=== PATIENT | female | born 1975 | race Two or more races ===

== ENCOUNTER 2017-05-10 07:55 | Day surgery (SDC) | payer OTHER ==
[~2017-05-10 07:55] MED LIST: HYDROmorphone 2 MG/ML VIAL IV PRN; IV RINGERS,LACTATED 1000ML 1,000 ML IV SCH; LIDOCAINE 1% 1 ML SYRINGE. ID PRN; MORPHINE SULFATE 2 MG/ML DISP.SYRIN. IV PRN; ONDANSETRON PF 4 MG/2 ML VIAL. IV PRN; PROCHLORPERAZINE 10 MG/2 ML VIAL. IV PRN; fentaNYL PF VIAL 100 MCG/2 ML VIAL IV PRN
[2017-05-10] MEDS ORDERED: BUPIVACAINE-EPI 0.5%-1:200000 50 ML VIAL. ONE (08:03)
[2017-05-10 08:50] LABS: NEG OBC UR NEG; POS OBC UR POS
[2017-05-10] MEDS ORDERED: PROPOFOL 20 ML IV ONE (09:54)
[2017-05-10] MEDS ORDERED: fentaNYL PF VIAL 100 MCG/2 ML VIAL ONE ×2 (09:54→12:21)
[2017-05-10] MEDS ORDERED: MIDAZOLAM HCL/PF 2 MG/2 ML VIAL. ONE (09:54)
[2017-05-10] MEDS ORDERED: DEXAMETHASONE SOD PHOS 20 MG/5 ML VIAL. ONE (09:54)
[2017-05-10] MEDS ORDERED: LIDOCAINE 2% PF Vial for OR 5 ML VIAL. ONE (09:54)
[2017-05-10] MEDS ORDERED: ONDANSETRON PF 4 MG/2 ML VIAL. ONE (09:54)
--- NOTE | 2017-05-10 10:05 | RAD ---
Indication indeterminate calcifications right breast. Wire localization of calcifications in the right breast, in anticipation of an open biopsy, was discussed with the patient. The risks of infection and bleeding were outlined. The possibility of damage to the implant was also discussed. The patient understood the risks associated with the procedure and wished proceed. The procedure was performed in a dedicated mammographic suite. A lateral to medial approach was selected. Preliminary images were obtained and the suspect calcifications were identified. The skin was prepped and draped in the routine fashion. Local anesthesia was accomplished with 1% buffered lidocaine. A 5 cm Kopan's wire was utilized. At the completion of the procedure the suspect calcifications were immediately adjacent to the midportion of the reinforced stem of the wire. The targeted calcifications are approximately 3 cm deep to the wire at the entry point in the skin. The patient had a minor vasovagal episode during the wire localization from which she recovered unremarkable under conservative treatment. IMPRESSION: Successful wire localization of target microcalcifications in the right breast
[2017-05-10] MEDS ORDERED: ePHEDrine PF IN SALINE 50 MG/5 ML DISP.SYRIN IV ONE (11:31)
--- NOTE | 2017-05-10 12:13 | RAD ---
Indication specimen radiograph. A specimen radiograph examination was performed. The targeted microcalcifications are retrieved in the specimen. IMPRESSION: Successful surgical retrieval of targeted microcalcifications
[2017-05-10] MEDS: fentaNYL PF VIAL 100 MCG/2 ML VIAL IV PRN ×2 (12:20→12:41)
--- NOTE | 2017-05-10 12:47 | PDOC1 ---
History and Physical Date of Admission Date of Admission DATE: 05/10/17 TIME: 11:00 Identification/Chief Complaint Chief Complaint Calcifications right breast Problems: Source Source: Caregiver, Patient History of Present Illness History of Present Illness Marcella is a 41 yo female with bilateral breast implants. Recent mammograms showed some calcifications in the upper outer quadrant of her right breast. She is brought for a needle loc biopsy Past Medical History Cardiovascular: No pertinent hx Pulmonary: No pertinent hx GI: No pertinent hx Past Surgical History Past Surgical History: Other (breast augmentation) Family History Family History: No Significant Social History Smoke: No ALCOHOL: none Current Medications Current Medications Current Medications Cefazolin Sodium/ Dextrose 50 ml @ 100 mls/hr 1X PREOP PRN IV PRIOR TO PROCEDURE Last administered on 05/10/17 11:25; Start 05/10/17 at 06:00; Stop at 18:00 Ondansetron HCl (Zofran) 4 mg PRN Q6HRS PRN IV NAUSEA/VOMITING; Start 05/10/17 at 07:00; Stop 05/11/17 at 06:59 Fentanyl Citrate (Fentanyl 2ml Vial) 25 mcg PRN Q5MIN PRN IV MILD PAIN; Start 05/10/17 at 07:00; Stop 05/11/17 at 06:59 Fentanyl Citrate (Fentanyl 2ml Vial) 50 mcg PRN Q5MIN PRN IV MODERATE PAIN Last administered on 05/10/17 12:41; Start 05/10/17 at 07:00; Stop 05/11/17 at 06:59 Morphine Sulfate 1 mg PRN Q10MIN PRN IV SEVERE PAIN; Start 05/10/17 at 07:00; Stop 05/11/17 at 06:59 Ringer's Solution 1,000 ml @ 30 mls/hr Q24H IV Last administered on 05/10/17 08:30; Start 05/10/17 at 07:00; Stop 05/10/17 at 18:59 Lidocaine HCl 2 ml PRN 1X PRN ID PRIOR TO IV START; Start 05/10/17 at 07:00; Stop 05/11/17 at 06:59 Hydromorphone HCl (Dilaudid) 0.5 mg PRN Q10MIN PRN IV SEV PAIN, Second choice; Start 05/10/17 at 07:00; Stop 05/11/17 at 06:59 Prochlorperazine Edisylate (Compazine) 5 mg PACU PRN PRN IV NAUSEA, MRX1; Start 05/10/17 at 07:00; Stop 05/11/17 at 06:59 Bupivacaine HCl/ Epinephrine Bitart (Marcaine-Epi 0.5%-1:[id number]) 50 ml STK-MED ONCE .ROUTE Last administered on 05/10/17t 11:40; Start 05/10/17 at 08:03; Stop 05/10/17 at 08:04; Status DC Cefazolin Sodium/ Dextrose 50 ml @ 100 mls/hr 1X PREOP PRN IV Pre Op dose; Start 05/11/17 at 06:00; Stop 05/11/17 at 18:00 Dexamethasone Sodium Phosphate (Decadron) 20 mg STK-MED ONCE .ROUTE ; Start at 09:54; Stop 05/10/17 at 09:55; Status DC Ondansetron HCl (Zofran) 4 mg STK-MED ONCE .ROUTE ; Start 05/10/17 at 09:54; Stop 05/10/17 at 09:55; Status DC Propofol 20 ml @ As Directed STK-MED ONCE IV ; Start 05/10/17 at 09:54; Stop at 09:55; Status DC Lidocaine HCl (Lidocaine Pf 2% Vial) 5 ml STK-MED ONCE .ROUTE ; Start 05/10/17 at 09:54; Stop 05/10/17 at 09:55; Status DC Midazolam HCl (Versed) 2 mg STK-MED ONCE .ROUTE ; Start 05/10/17 at 09:54; Stop 05/10/17 at 09:55; Status DC Fentanyl Citrate (Fentanyl 2ml Vial) 100 mcg STK-MED ONCE .ROUTE ; Start at 09:54; Stop 05/10/17 at 09:55; Status DC Ephedrine Sulfate 50 mg STK-MED ONCE IV ; Start 05/10/17 at 11:31; Stop at 11:32; Status DC Fentanyl Citrate (Fentanyl 2ml Vial) 100 mcg STK-MED ONCE .ROUTE ; Start at 12:21; Stop 05/10/17 at 12:22; Status DC Active Scripts Active Reported No Known Medications Prior To Admisstion (Info) Each 1 Each Allergies Allergies: Coded Allergies: No Known Drug Allergies (Unverified , 05/10/17) ROS Review of System negative with exception of present complaints Physical Exam General: Alert, Oriented X3, No acute distress HEENT: Atraumatic Lungs: Clear to auscultation Heart: RRR Breasts: No suspicious masses, Salvador implants Skin: No rashes Neuro: Normal speech Vitals Vitals Vital Signs Date Time Temp Pulse Resp B/P (MAP) Pulse Ox O2 Delivery O2 Flow Rate FiO2 05/10/17 12:41 13 98 Room Air 05/10/17 12:28 97.1 84 123/68 10 97.1 Labs Labs Laboratory Tests Test 05/10/17 08:00 Urine Test Negative (NEG) Laboratory Tests Test 05/10/17 08:00 Urine Test Negative (NEG) Images Images localization films reviewed VTE Prophylaxis Ordered VTE Prophylaxis Devices: Yes VTE Pharmacological Prophylaxi: No Assessment/Plan Assessment/Plan calcifications right breast needle loc biopsy ROLLY REED MD May 10, 2017 12:47
--- NOTE | 2017-05-10 12:49 | PDOC ---
BRIEF OPERATIVE NOTE Date: May 10, 2017 Pre-Op Diagnosis calcifications right breast Post-Op Diagnosis same Procedure Performed needle loc breast biopsy,. right Surgeon Frank Guidance Counselor Mary BERNAL Anesthesia Type: General Blood Loss 5cc IV Fluid 600cc Specimens Obtained right breast biopsy Findings firm tissue in the area of concern Complications none OPerative Note Wk # [id number] ROLLY REED MD May 10, 2017 12:49
--- NOTE | 2017-05-10 12:50 | DISCH ---
DISCHARGE INSTRUCTIONS Condition on Discharge Condition on Discharge: Stable Activity After Discharge Activity Instructions for Disc: Activity as tolerated, Avoid exertion Driving Instructions after Dis: Do not drive today Diet after Discharge Diet after Discharge: Regular Wound Incision Care Other wound/incision instructi: february shower Saturday Follow-Up Follow up with: Frank in [place] office 05/16 ROLLY REED MD May 10, 2017 12:50
--- NOTE | 2017-05-10 12:55 | OP ---
DATE OF SURGERY: 05/10/2017 PREOPERATIVE DIAGNOSIS: Mammographic change right breast with calcification ____ with an implant. POSTOPERATIVE DIAGNOSIS: Mammographic change right breast with calcification ____ with an implant. PROCEDURE: Right middle lobe breast biopsy. SURGEON: Rolly Reed MD ANESTHESIA: General LMA. ESTIMATED BLOOD LOSS: 5 mL. INTRAVENOUS FLUIDS: 600 mL. INDICATIONS: The patient is a 41-year-old with bilateral breast implants, who on recent mammograms and calcifications on the upper outer aspect of her right breast. She is brought for excision. OPERATIVE REPORT: The patient went to the radiology suite where she underwent localization of calcification in the upper quadrant of the right breast. She was then brought to the Operating Suite, given general LMA and the right breast was prepped and draped in usual sterile fashion. A curvilinear incision in the upper quadrant was infiltrated with 0.5% Marcaine with epinephrine, incised and dissection carried down to the localization wire. Care was taken to avoid the implant. The tissue posterior to the shoulder of the wire which represent to the area of concern was sharply excised. Specimen sent to Radiology where specimen radiograph confirmed the presence of the calcifications. Hemostasis in the wound with cautery and a single 3-0 Vicryl stitch. When hemostasis was present and a correct sponge count was obtained, the breast tissue was approximated with 3-0 Vicryl and the skin was closed with subcuticular 4-0 Monocryl, Steri-Strips and sterile dressing. The patient awakened from her anesthetic and taken to the recovery room in satisfactory condition. ROLLY REED MD DR: ADRIAN/nts JOB#: [id number] / [id number]
[2017-05-10] MEDS ORDERED: HYDROcodone/APAP 5/325MG 1 TAB TABLET PO ONE (13:00)
[2017-05-10 13:30] VITALS: BP 122/72
[2017-05-10] MEDS ORDERED: SEVOFLURANE 31 TO 60 MINUTES. IH ONE (13:32)
--- NOTE | 2017-05-14 08:36 | PATHOLOGY ---
PATHOLOGY REPORT * * * * * * * * FINAL DIAGNOSIS: Breast tissue, wire localized right breast biopsy: - Invasive ductal carcinoma, histologic grade 1, forming a tumor mass measuring 1.4 cm in greatest dimension. - INVASIVE carcinoma is focally present at the inked histologic margin. - Ductal carcinoma in situ, low-grade, cribriform type, with associated calcifications. - Proliferative fibrocystic changes, with focal moderate ductal epithelial hyperplasia. - Sclerosing adenosis and radial sclerosing lesions with focal moderate ductal epithelial hyperplasia. (JPM:kervin; 05/13/2017) CLINICAL Clinical History: Other: Calcifications. Radiologic Finding: Calcifications SPECIMEN Procedure: Excision with image-guided localization Lymph Node Sampling: No lymph nodes present Specimen Laterality: Right TUMOR Primary Tumor Site: Invasive Carcinoma: Not specified Presence of Invasive Carcinoma: Histologic Type: Invasive mammary carcinoma of no special type (ductal, not otherwise specified) Histologic Grade (Adv Histologic Score): Glandular (Acinar) / Tubular Differentiation: Score 1 (> 75% of tumor area forming glandular / tubular structures) Nuclear Pleomorphism: Score 2 (Cells larger than normal with open vesicular nuclei, visible nucleoli, and moderate variability in both size and shape) Mitotic Rate: Score 1 (<=3 mitoses per mm2) Overall Grade: Grade 1 (scores of 3, 4 or 5) Ductal Carcinoma In Situ (DCIS): DCIS is present Negative for extensive intraductal component (EIC) Architectural Patterns: Cribriform Nuclear Grade (see Table 2 in CAP Protocol): Grade I (low) Lobular Carcinoma In Situ (LCIS): Not identified Tumor Size: Size of Largest Invasive Carcinoma: Greatest dimension of largest focus of invasion > 1 mm Greatest Dimension (mm): 14 Accessory Tumor Findings Lymph-Vascular Invasion: Not identified Dermal Lymph-Vascular Invasion: No skin present Microcalcifications: Present in DCIS Treatment Effect: Response to Presurgical (Neoadjuvant) Therapy: No known presurgical therapy MARGINS Invasive Carcinoma: Margin(s) positive for invasive carcinoma Specify Margin(s): Cannot be determined: Specimen not oriented. Ductal Carcinoma In Situ (DCIS): Margins uninvolved by DCIS (DCIS present in specimen) Distance of DCIS from Closest Margin (mm): Distance (specify in mm): 1 Closest Uninvolved Margin(s): Cannot be determined: Specimen not oriented. STAGE (PTNM) Primary Tumor (Invasive Carcinoma) (pT): pT1c: Tumor > 10 mm but <= 20 mm in greatest dimension Category (pN): pNX: Regional lymph nodes cannot be assessed (e.g., previously removed, or not removed for pathologic study) ADDITIONAL FINDINGS Additional Pathologic Findings: See diagnoses. COMMENT: Sections of the wire localized right breast lesion reveal an invasive ductal carcinoma with cribriform features. The tumor shows fairly good tubule formation, mild to moderate nuclear pleomorphism, and only mild mitotic activity. There is associated low-grade ductal carcinoma in situ of cribriform type with associated calcifications. The invasive carcinoma measures up to 1.4 cm in greatest dimension and is focally present at the inked margin. There is no lymphovascular tumor invasion. The tumor arises within a setting of proliferative fibrocystic changes, sclerosing adenosis, and radial sclerosing lesions. Breast prognostic studies will be obtained, the results of which will be reported separately. The case is also examined with Dr. Barksdale, who concurs with the diagnosis. (JPM:kervin; 05/13/2017) REPORT ELECTRONICALLY SIGNED BY: Robert Cheng M.D. DATE/TIME: 05/14/2017 08:36 * * * * * * * * GROSS PATHOLOGY: The specimen is received fresh, in a TranSpec specimen container, designated, "Marcella Velasco, right breast tissue" and consists of an irregular , rubbery firm segment of yellow walton, lobulated, fatty breast tissue measuring 4.5 x 3.2 x 0.7 cm in maximum dimensions. There is a metallic wire protruding from one end of the specimen. There is also a suture present; however, the specimen is not oriented. The margins are inked with black ink and the specimen is serially sectioned. Sectioning reveals a predominantly fatty cut surface with a few fibrous bands of walton white breast tissue. In the area of localization, there is an eccentrically located area of walton white nodularity, measuring up to 0.9 cm in maximum dimensions. This focally extends to one margin grossly. The specimen is submitted entirely in cassettes A1-A6, with the localized area in cassettes A4 and A5. The cold ischemic time is 9 minutes and total formalin fixation time is 9 hours and 50 minutes. (JPM; 05/10/17) INITIAL CPT CODE(S): A; 63711, 70842(4) Professional services [place] [address] Technical services performed by [facility] at [address] [place] [address], [address] [address]. SPECIMEN(S) RECEIVED: A.Right breast biopsy CLINICAL HISTORY: Microcalcifications right breast PATIENT: MARCELLA VELASCO /AGE: 2 1975 (Age: 41) PATIENT #: [id number] ALT CASE #: SPECIMEN COLLECTION DATE: 05/10/2017 SPECIMEN RECEIVED DATE: 05/10/2017 [facility] - [address] [place] [address] - PHONE: [phone] * * * END OF REPORT * * *
== END 2017-05-10 13:52 | disposition home or self-care (01) ==
LOC: MAMMO 07:55
PROVIDERS: ATTEND Surgery
DX: R92.1 Mammographic calcification found on diagnostic imaging of breast (principal); Z72.89 Other problems related to lifestyle
CPT/HCPCS: 19100; 19281; 76098; 81025; J0690; J1100; J2001; J2250; J2405; J2704; J3010; C1769; J7120

== ENCOUNTER 2017-05-27 07:42 | Inpatient (IN) | payer OTHER ==
[2017-05-27] VITALS (9 sets, daily range): BP systolic 99–135; BP diastolic 57–76
[~2017-05-27] VITALS: Ht 160 cm; Wt 61.7 kg
[~2017-05-27 07:42] MED LIST changes: +LIDOCAINE 1% / SOD BICARB 8.4% 20 ML VIAL. IJ ONE
[2017-05-27 08:28] LABS: NEG OBC UR NEG; POS OBC UR POS
[2017-05-27] MEDS ORDERED: LIDOCAINE 2% TOPICAL JELLY 5GM TUBE. TP ONE (08:37)
[2017-05-27] MEDS ORDERED: PROPOFOL 20 ML IV ONE (08:37)
[2017-05-27] MEDS ORDERED: LIDOCAINE 2% PF Vial for OR 5 ML VIAL. ONE (08:37)
[2017-05-27] MEDS ORDERED: MIDAZOLAM HCL/PF 2 MG/2 ML VIAL. ONE (08:42)
[2017-05-27] MEDS ORDERED: fentaNYL PF VIAL 100 MCG/2 ML VIAL ONE ×4 (08:42→13:40)
[2017-05-27] MEDS ORDERED: ISOSULFAN BLUE 50 MG/5 ML VIAL. SQ ONE (09:13)
[2017-05-27] MEDS ORDERED: BUPIVAC MPF-EPI 0.5%-1:200000 30 ML VIAL. ONE (09:13)
[2017-05-27] MEDS ORDERED: EPINEPHrine 1 MG/ML VIAL ONE (11:03)
--- NOTE | 2017-05-27 11:23 | RAD ---
Indication right breast malignancy. Anticipated sentinel node biopsy. The area around the right nipple was prepped and cleansed in the routine fashion. 0.8 mCi of filtered technetium sulfur colloid was injected about the right nipple at the 12, 3, 6 and 9:00 positions. No images were obtained. IMPRESSION: Lymphoscintigraphy in anticipation of sentinel node biopsy
[2017-05-27] MEDS ORDERED: PHENYLEPHRINE 10 MG/ML VIAL. ONE (11:54)
[2017-05-27] MEDS ORDERED: 0.9 % SODIUM CHLORIDE 50 ML VIAL. IJ ONE (11:54)
[2017-05-27] MEDS ORDERED: SEVOFLURANE 61 TO 120 MINUTES. IH ONE (12:33)
[2017-05-27] MEDS ORDERED: HYDROcodone/APAP 5/325MG 1 TAB TABLET PO PRN (13:00)
[2017-05-27] MEDS ORDERED: ONDANSETRON PF 4 MG/2 ML VIAL. IV PRN (13:00)
[2017-05-27] MEDS ORDERED: diphenhydrAMINE 50 MG/ML VIAL IV PRN (13:00)
[2017-05-27] MEDS ORDERED: diphenhydrAMINE HCL 25 MG CAPSULE PO PRN (13:00)
[2017-05-27] MEDS ORDERED: 0.9 % SODIUM CHLORIDE 10 ML DISP.SYRIN. IV PRN (13:00)
[2017-05-27] MEDS ORDERED: HYDROmorphone 2 MG/ML VIAL IV PRN (13:00)
[2017-05-27] MEDS: fentaNYL PF VIAL 100 MCG/2 ML VIAL IV PRN ×4 (13:17→13:56)
[2017-05-27] MEDS: POTASSIUM CL 20MEQ-0.45% NACL 1,000 ML IV SCH (16:06)
[2017-05-27] MEDS: HYDROcodone/APAP 5/325MG 1 TAB TABLET PO PRN ×2 (16:07→23:07)
--- NOTE | 2017-05-27 16:58 | PDOC ---
BRIEF OPERATIVE NOTE Date: May 27, 2017 Pre-Op Diagnosis Invasive carcinoma right breast Post-Op Diagnosis Same Procedure Performed Right sentinel lymph node biopsy Right segmental mastectomy Surgeon Frank Anesthesia Type: General Blood Loss 20 mL IV Fluid 1500 mL Specimens Obtained Right sentinel lymph node 2 Right axillary tissue Right breast segmental mastectomy Findings Negative sentinel nodes 2 Complications None OPerative Note Wk # [id number] ROLLY REED MD May 27, 2017 16:58
--- NOTE | 2017-05-27 20:50 | OP ---
DATE OF SURGERY: 05/27/2017 PREOPERATIVE DIAGNOSIS: Invasive carcinoma, right breast. POSTOPERATIVE DIAGNOSIS: Invasive carcinoma, right breast. PROCEDURE: 1. Right sentinel lymph node biopsy. 2. Right segmental mastectomy. SURGEON: Rolly Reed MD ANESTHESIA: General LMA. ESTIMATED BLOOD LOSS: 20. INTRAVENOUS FLUIDS: 1500. INDICATIONS: The patient is a 41-year-old with a previous biopsy showing invasive ductal carcinoma. She is brought for segmental mastectomy. OPERATIVE FINDINGS: The sentinel nodes were harvested were blue stained and "hot" Both were negative for evidence of metastatic disease. DESCRIPTION OF PROCEDURE: The patient brought to the operating suite, given a general anesthetic and the right breast, arm and chest were prepped and draped in usual sterile fashion. She had gone to the nuclear medicine department preoperatively for injection of the radionuclei. 5 mL of Lymphazurin was injected intradermally, circumareolarly in the quadrant associated with the patient's cancer. General breast massage was carried out for approximately 5 minutes. Using the C-Trak probe as a guide an incision was made in the axilla over an area of activity suggesting sentinel lymph node location. 0.5% Marcaine with epinephrine was infiltrated in the skin. Incision was made, dissection carried down into the axilla where two "hot" and blue stain nodes were harvested and sent to Pathology. While awaiting those results some other tissue was harvested and this markedly decreased any activity within the axilla. Intraoperative report of the nodes was negative for evidence of metastatic change. As such, the skin around the previous biopsy site was infiltrated with local anesthetic, sharply incised and the skin and underlying area removed en bloc. Care was taken to stay above the pectoralis musculature and avoid damage to the patient's known implants. Good hemostasis was present. A 19-Macedonian drain was threaded from the axillary incision into the breast incision and brought out inferolateral stab wounds, sewn to the skin with a silk stitch. When a correct sponge count had been obtained and hemostasis was present, the incisions were closed with subcuticular 4-0 Monocryl. Steri-Strips and sterile dressings applied. The patient awakened from her anesthetic and taken to the recovery room in satisfactory condition. ROLLY REED MD DR: ADRIAN/michelle JOB#: [id number] / [id number]
[2017-05-27] MEDS: DOCUSATE SODIUM 100 MG CAPSULE. PO SCH (21:44)
[2017-05-28 03:00] VITALS: BP 93/48
[2017-05-28] MEDS: POTASSIUM CL 20MEQ-0.45% NACL 1,000 ML IV SCH ×3 (05:20→13:24)
[2017-05-28 07:00] VITALS: BP 124/76
[2017-05-28] MEDS: ENOXAPARIN 40 MG/0.4 ML SYRINGE. SQ SCH (09:10)
[2017-05-28] MEDS: HYDROcodone/APAP 5/325MG 1 TAB TABLET PO PRN ×3 (09:11→19:29)
[2017-05-28] MEDS: DOCUSATE SODIUM 100 MG CAPSULE. PO SCH ×2 (09:11→19:28)
[2017-05-28 11:00] VITALS: BP 92/68
[2017-05-28 15:00] VITALS: BP 110/72
--- NOTE | 2017-05-28 18:42 | PDOC ---
SURGICAL PROGRESS NOTE Subjective seen earlier today daughter at bedside to translate had some dizziness when up earlier better now Vital Signs Vital Signs Date Time Temp Pulse Resp B/P (MAP) Pulse Ox O2 Delivery O2 Flow Rate FiO2 05/28/17 15:00 99.2 72 110/72 (85) 96 Room Air 99.2 05/28/17 11:00 16 05/27/17 16:07 2.0 I&O Intake and Output 05/28/17 07:00 Intake Total 2040 ml Output Total 55 ml Balance 1985 ml Intake Oral 440 ml IV Total 1600 ml Drainage Total 55 ml # Voids 3 PATIENT HAS A PURVIS: No General: Alert, No acute distress Skin: Other (dressing intact, SHIKHA with small amount of serosanguineous drainage) Labs Laboratory Tests Test 05/27/17 07:50 Urine Test Negative (NEG) Assessment/Plan POD 1 right segmental mastectomy advance diet ambulate Problems: ROLLY REED MD May 28, 2017 18:42
[2017-05-28 19:48] VITALS: BP 107/64
[2017-05-28 23:09] VITALS: BP 126/59
[2017-05-29] MEDS: HYDROcodone/APAP 5/325MG 1 TAB TABLET PO PRN (03:25)
[2017-05-29] MEDS: POTASSIUM CL 20MEQ-0.45% NACL 1,000 ML IV SCH (03:27)
[2017-05-29 03:34] VITALS: BP 117/57
[2017-05-29 07:00] VITALS: BP 118/53
[2017-05-29] MEDS: ENOXAPARIN 40 MG/0.4 ML SYRINGE. SQ SCH (09:57)
[2017-05-29] MEDS: DOCUSATE SODIUM 100 MG CAPSULE. PO SCH (09:57)
[2017-05-29 10:00] VITALS: BP 124/67
--- NOTE | 2017-05-29 11:25 | PDOC3 ---
Discharge Summary Visit Information Date of Admission: May 27, 2017 Date of Discharge: May 29, 2017 Admitting Diagnosis Comment: invasive ductal carcinoma, right breast Final Diagnosis same Brief Hospital Course Allergies Allergies Coded Allergies Type Severity Reaction Last Updated Verified No Known Drug Allergies 05/27/17 No Vital Signs Vital Signs Date Time Temp Pulse Resp B/P (MAP) Pulse Ox O2 Delivery O2 Flow Rate FiO2 05/29/17 10:49 18 97 Room Air 05/29/17 10:00 97.5 62 124/67 (86) 97.5 Brief Hospital Course Ms. Espinoza is a 41 old female who presented with biopsy proven invasive ductal carcinoma right breast. Underwent segmental mastectomy with SLN biopsy. Discharge Information Condition at Discharge: Stable Follow Up: As Needed (for drain removal) Disposition/Orders: D/C to Home Miscellaneous Medications Info (No Known Medications Prior To Admisstion), 1 EACH MC, (Reported) Patient Instructions Patient Instructions see discharge ROLLY REED MD May 29, 2017 11:25
--- NOTE | 2017-05-29 11:26 | DISCH ---
DISCHARGE INSTRUCTIONS Condition on Discharge Condition on Discharge: Stable Activity After Discharge Activity Instructions for Disc: Activity as tolerated, Avoid exertion Lifting Instructions after Dis: No heavy lifting Driving Instructions after Dis: Do not drive Diet after Discharge Diet after Discharge: Regular Wound Incision Care Wound/Incision Care: Ice to area for comfort Follow-Up Follow up with: Frank in two days with SHIKHA output ROLLY REED MD May 29, 2017 11:26
== END 2017-05-29 14:05 | disposition home or self-care (01) | DRG 581 ==
LOC: SURG 07:42 → 4 NORTH 13:05
PROVIDERS: ADMIT Surgery; ATTEND Surgery
PROC: 0HBT0ZZ Excision of Right Breast, Open Approach (ICD-10-PCS; principal; 2017-05-27 09:30)
PROC: 07B50ZX Excision of Right Axillary Lymphatic, Open Approach, Diagnostic (ICD-10-PCS; 2017-05-27 09:30)
DX: C50.911 Malignant neoplasm of unspecified site of right female breast (principal)
CPT/HCPCS: 38792; 81025; 96374; A9541; C1769; J0171; J0690; J1650; J2001; J2250; J2405; J2704; J3010; J3490; Q9968

== ENCOUNTER → 2017-07-23 | Outpatient (CLI) | payer OTHER ==
[2017-07-23 09:34] LABS: BASO % 1 % (0-3); EOS % 2 % (0-3); HEMATOCRIT 38.7 % (36.0-47.0); HEMOGLOBIN 12.6 g/dL (12.0-15.5); LYMPH # 0.9 x10^3/uL (1.0-4.8); LYMPH % 17 % (24-48); MEAN CORPUSCULAR HEMOGLOBIN 29 pg (25-35); MEAN CORPUSCULAR HGB CONC 33 g/dL (31-37); MEAN CORPUSCULAR VOLUME 89 fL (79-100); MONO % 8 % (0-9); NEUT % 72 % (31-73); PLATELET COUNT 182 x10^3/uL (140-400); RED BLOOD COUNT 4.33 x10^6/uL (3.50-5.40); RED CELL DISTRIBUTION WIDTH 13.7 % (11.5-14.5); WHITE BLOOD COUNT 5.5 x10^3/uL (4.0-11.0)
[2017-07-23 09:59] LABS: ALBUMIN 3.9 g/dL (3.4-5.0); ALBUMIN/GLOBULIN RATIO 1.1 (1.0-1.7); CALCIUM 9.1 mg/dL (8.5-10.1); CREATININE 0.7 mg/dL (0.6-1.0); GFR 91.8; POTASSIUM 3.7 mmol/L (3.5-5.1); TOTAL BILIRUBIN 1.6 mg/dL (0.2-1.0); TOTAL PROTEIN 7.4 g/dL (6.4-8.2)
--- NOTE | 2017-07-23 10:31 | RAD ---
Hepatic ultrasound, 07/23/2017: History: Breast cancer The gallbladder is within normal limits in size. There is no sonographic evidence of cholelithiasis. The gallbladder lu are not thickened. No bile duct dilatation is seen. There is a 2.3 cm hyperechoic focus present posteriorly in the right lobe of the liver. No other hepatic lesion is seen. The visualized portions of the right kidney and pancreas are unremarkable. IMPRESSION: Small hyperechoic lesion in the right lobe of the liver. While this is a common appearance for hepatic hemangioma, the findings are nonspecific and a metastatic lesion cannot be excluded. Multiphase CT or MR scanning is suggested for further evaluation, if not already performed elsewhere.
--- NOTE | 2017-07-23 16:58 | RAD ---
Radionuclide bone scan, 07/23/2017: History: Breast cancer Whole body imaging was performed following IV injection of 25 mCi of technetium 99m MDP. No previous bone scan is available at this time for comparison purposes. The following findings are delineated: 1. There is mild symmetrically increased activity at multiple joints including the sternoclavicular and sacroiliac joints, compatible with arthritis. 2. Activity of the radionuclide about the skeleton the major joints is otherwise unremarkable. 3. Normal activity is present in both kidneys and the bladder. IMPRESSION: No bone scan findings to suggest osseous metastatic disease.
== END | disposition home or self-care (01) ==
LOC: NM 09:05
PROVIDERS: ATTEND Internal Medicine Medical Oncology
DX: C50.919 Malignant neoplasm of unspecified site of unspecified female breast (principal); D18.03 Hemangioma of intra-abdominal structures
CPT/HCPCS: 36415; 76705; 78306; 80053; 85025; 86300; 96374; A9503

== ENCOUNTER → 2017-08-06 | Outpatient (CLI) | payer OTHER ==
[~2017-08-06] MED LIST changes: -HYDROmorphone 2 MG/ML VIAL IV PRN; +IOHEXOL 300 MG/ML 75 ML VIAL IV ONE; -IV RINGERS,LACTATED 1000ML 1,000 ML IV SCH; -LIDOCAINE 1% / SOD BICARB 8.4% 20 ML VIAL. IJ ONE; -LIDOCAINE 1% 1 ML SYRINGE. ID PRN; -MORPHINE SULFATE 2 MG/ML DISP.SYRIN. IV PRN; -ONDANSETRON PF 4 MG/2 ML VIAL. IV PRN; -PROCHLORPERAZINE 10 MG/2 ML VIAL. IV PRN; -fentaNYL PF VIAL 100 MCG/2 ML VIAL IV PRN
--- NOTE | 2017-08-06 11:13 | RAD ---
2 views of the Chest 08/06/2017 2:00 AM Indication: BREAST CA. Comparison: None Findings: There is no focal consolidation or infiltrate identified. There is no effusion or pneumothorax. The cardiomediastinal silhouette and pulmonary vasculature are within normal limits. No osseous abnormality is identified. Impression: No evidence of acute cardiopulmonary process.
--- NOTE | 2017-08-06 14:21 | RAD ---
Indication: Breast cancer. Hepatic lesion on ultrasound Technique: Precontrast, arterial, portal venous, and delayed imaging was performed. 75 mL of intravenous Omnipaque 300 was administered without complication. Reformats are provided. Comparison ultrasound is from July 23, 2017. One or more of the following individualized dose reduction techniques were utilized for this examination: 1. Automated exposure control 2. Adjustment of the mA and/or kV according to patient size 3. Use of iterative reconstruction technique Findings: Low-density lesion within the liver within the posterior segment of the right hepatic lobe demonstrates discontinuous peripheral enhancement on arterial and portal venous phase imaging. This lesion partially fills in on delayed imaging. Lesion measures 19 mm. It was well-defined and hyperechoic on ultrasound. Imaging characteristics are most compatible with hemangioma. Comparison to any older studies would be beneficial. The lung bases are clear. There is no pleural effusion. The heart is not enlarged. Breast implants are noted. Gallbladder, spleen, pancreas, and adrenals are unremarkable. Kidneys are symmetrically perfused. 1 cm probable cyst in the right kidney is noted. The included small bowel and colon are grossly unremarkable on this exam without oral contrast. Aorta is normal caliber. Left gonadal vein is prominent and there is increased vascularity in the pelvis. Uterus is retroverted. There is free pelvic fluid. Only a portion of the pelvis is included, study was ordered as an abdomen, not an abdomen and pelvis. Bony structures are intact. Impression: 1. Probable hemangioma in the posterior segment of the right hepatic lobe. 2. No acute abdominal findings. 3. Probable right renal cyst. 4. Partially included findings suggesting pelvic congestion.
== END | disposition home or self-care (01) ==
LOC: CT 10:03
PROVIDERS: ATTEND Internal Medicine Medical Oncology
DX: C50.911 Malignant neoplasm of unspecified site of right female breast (principal); N85.4 Malposition of uterus
CPT/HCPCS: 71020; 74170; Q9967

== ENCOUNTER → 2017-08-28 | Outpatient (CLI) | payer OTHER ==
--- NOTE | 2017-08-28 14:56 | RAD ---
Transabdominal and transvaginal sonography of the pelvis Indications: Pelvic congestion. Abnormal CT study in August 06, 2017. Comparison: Abdomen CT dated August 06, 2017. Transabdominal sonography: The uterus is retroflexed. The longitudinal and AP and transverse dimensions of the uterus are 8.7 cm and 5.2 cm and 7.1 cm respectively. The endometrial canal is poorly visualized. Therefore, transvaginal sonography will be performed. The left ovary measures 3.1 cm and 1.4 cm and 2.6 cm in size and is normal. The right ovary is not visualized. No adnexal mass is seen. Transvaginal sonography: No uterine mass or fibroid is seen. The endometrial canal measures 6 mm in thickness. The right ovary measures 3.6 cm and 1.3 cm and 2.4 cm in size and contains 2 follicular cysts; the largest of which measures 16 mm. Color Doppler flow is seen within the right ovary. The left ovary measures 2.9 cm and 2.5 cm and 1.6 cm in size and contains small subcentimeter follicular cysts. Color Doppler flow is seen within the left ovary. No adnexal mass is seen. Prominent vasculature is seen within the left adnexa corresponding to the abdomen CT findings of pelvic congestion. A small amount of physiologic free fluid is seen within the cul-de-sac. IMPRESSION: 16 mm follicular cyst of the right ovary. Small amount of physiologic free fluid within the cul-de-sac. Pelvic congestion on the left side corresponding to the CT finding.
== END | disposition home or self-care (01) ==
LOC: US 08:03
PROVIDERS: ATTEND Internal Medicine Medical Oncology
DX: N83.01 Follicular cyst of right ovary (principal); N94.89 Other specified conditions associated with female genital organs and menstrual cycle; K76.89 Other specified diseases of liver
CPT/HCPCS: 76830; 76856

== ENCOUNTER → 2017-11-19 | Outpatient (CLI) | payer OTHER ==
[2017-11-19 08:14] LABS: ALBUMIN 3.7 g/dL (3.4-5.0); ALK PHOS 66 U/L (46-116); ALT (SGPT) 20 U/L (14-59); AST (SGOT) 11 U/L (15-37); DIRECT BILIRUBIN 0.2 mg/dL (0.0-0.2); TOTAL BILIRUBIN 0.6 mg/dL (0.2-1.0); TOTAL PROTEIN 7.4 g/dL (6.4-8.2)
[2017-11-19 12:18] LABS: CA 27.29 13.8 U/mL (0.0-38.6)
== END | disposition home or self-care (01) ==
LOC: US 07:20
DX: K76.89 Other specified diseases of liver (principal)
CPT/HCPCS: 36415; 76705; 80076; 86300

== ENCOUNTER → 2018-05-06 | Outpatient (CLI) | payer OTHER ==
[~2018-05-06] MED LIST changes: -IOHEXOL 300 MG/ML 75 ML VIAL IV ONE; +LIDOCAINE 1%/EPI 1:100,000 20 ML VIAL. INJ
== END | disposition home or self-care (01) ==
LOC: US 07:42
DX: N60.31 Fibrosclerosis of right breast (principal); N60.41 Mammary duct ectasia of right breast; Z85.3 Personal history of malignant neoplasm of breast; Z72.89 Other problems related to lifestyle; Z98.890 Other specified postprocedural states
CPT/HCPCS: 19083; 19085; 76942; 77065; 88305; C1713

== ENCOUNTER → 2018-11-20 | Outpatient (CLI) | payer BC ==
--- NOTE | 2018-11-20 15:53 | EKG ---
[facility] [address] [place] [address] Test Date: 2018-11-20 Test Time: 15:50:30 Pat Name: CHEYENNE VELASCO Department: Room: Gender: F Distance Learning Unit Leader: KALEE : 1975 Requested By: PETRONA BRONSON Order Number: [id number] Reading MD: Kar Nickerson MD Measurements Intervals [place] Rate: 62 P: 53 NJ: 166 QRS: 46 QRSD: 68 T: 36 QT: 402 QTc: 410 Interpretive Statements SINUS RHYTHM Electronically Signed On 11-24-2018 9:02:42 AUDIO VISUAL AIDS DIRECTOR by Kar Nickerson MD
[2018-11-20 16:15] LABS: BASO % 1 % (0-3); EOS # 0.1 x10^3/uL (0.0-0.7); EOS % 2 % (0-3); HEMATOCRIT 37.4 % (36.0-47.0); HEMOGLOBIN 12.6 g/dL (12.0-15.5); LYMPH # 1.1 x10^3/uL (1.0-4.8); LYMPH % 21 % (24-48); MEAN CORPUSCULAR HEMOGLOBIN 30 pg (25-35); MEAN CORPUSCULAR HGB CONC 34 g/dL (31-37); MEAN CORPUSCULAR VOLUME 89 fL (79-100); MONO # 0.4 x10^3/uL (0.0-1.1); MONO % 7 % (0-9); NEUT # 3.7 x10^3uL (1.8-7.7); NEUT % 70 % (31-73); PLATELET COUNT 179 x10^3/uL (140-400); RED BLOOD COUNT 4.18 x10^6/uL (3.50-5.40); RED CELL DISTRIBUTION WIDTH 12.9 % (11.5-14.5); WHITE BLOOD COUNT 5.3 x10^3/uL (4.0-11.0)
[2018-11-20 16:18] LABS: BILIRUBIN,URINE NEGATIVE (NEG); CLARITY,URINE CLEAR; COLOR,URINE YELLOW; NITRITE,URINE NEGATIVE (NEG); PH,URINE 6.5; PROTEIN,URINE NEGATIVE (NEG-TRACE); UROBILINOGEN,URINE 0.2 mg/dL (0.2 mg/dL)
[2018-11-20 16:25] LABS: BACTERIA,URINE MODERATE /HPF (0-FEW); RBC,URINE 0 /HPF (0-2); SQUAMOUS EPITHELIAL CELL,UR MOD /LPF; WBC,URINE OCC /HPF (0-4)
--- NOTE | 2018-11-20 16:46 | RAD ---
Chest radiograph 11/20/2018 3:12 PM INDICATION: Preoperative hysterectomy COMPARISON: August 06, 2017 TECHNIQUE: Frontal and lateral views of the chest are provided. FINDINGS: The cardiomediastinal silhouette is within normal limits. There are no pleural effusions. There is no pulmonary vascular congestion. There is no pneumothorax. The lungs are clear. No significant osseous abnormality is identified. IMPRESSION: No acute cardiopulmonary process. Electronically signed by: Lorena Dukes MD (11/20/2018 4:42 PM) [facility]
[2018-11-20 16:52] LABS: ALBUMIN 3.4 g/dL (3.4-5.0); CALCIUM 8.9 mg/dL (8.5-10.1); CREATININE 0.6 mg/dL (0.6-1.0); GFR 109.1; POTASSIUM 3.5 mmol/L (3.5-5.1); TOTAL PROTEIN 6.8 g/dL (6.4-8.2)
--- NOTE | 2018-11-21 12:32 | NUR ---
FAXED PRE - OP TEST REPORTS TO 'S OFFICE FOR REVIEW 11/21/2018 AT 1211 AND RECEIVED TRANSMITTAL CONFIRMATION.
== END | disposition home or self-care (01) ==
LOC: SURGPAT 15:05
PROVIDERS: ATTEND Obstetrics & Gynecology
DX: Z01.818 Encounter for other preprocedural examination (principal); Z85.3 Personal history of malignant neoplasm of breast
CPT/HCPCS: 36415; 71046; 80053; 81001; 85025; 87086; 93005

== ENCOUNTER 2018-11-27 06:03 | Observation (INO) | payer BC ==
[~2018-11-27] VITALS: Ht 162.6 cm; Wt 64.0 kg
[2018-11-27] VITALS (7 sets, daily range): BP systolic 97–113; BP diastolic 62–77
[2018-11-27] MEDS ORDERED: IV RINGERS,LACTATED 1000ML 1,000 ML IV SCH (07:00)
[2018-11-27] MEDS ORDERED: ONDANSETRON PF 4 MG/2 ML VIAL. IV PRN ×2 (07:00→09:30)
[2018-11-27] MEDS ORDERED: PROCHLORPERAZINE 10 MG/2 ML VIAL. IV PRN (07:00)
[2018-11-27] MEDS ORDERED: HYDROmorphone 2 MG/ML VIAL IV PRN (07:00)
[2018-11-27] MEDS ORDERED: fentaNYL PF VIAL 100 MCG/2 ML VIAL IV PRN (07:00)
[2018-11-27] MEDS ORDERED: LIDOCAINE 1% PF 2 ML VIAL. ID PRN (07:00)
[2018-11-27] MEDS ORDERED: MORPHINE SULFATE 4 MG/ML VIAL. IV PRN ×2 (07:00→09:30)
[2018-11-27] MEDS ORDERED: PROPOFOL 20 ML IV ONE (07:12)
[2018-11-27] MEDS ORDERED: fentaNYL PF VIAL 100 MCG/2 ML VIAL ONE ×2 (07:12→09:51)
[2018-11-27] MEDS ORDERED: LIDOCAINE 2% PF 5 ML VIAL. ONE (07:12)
[2018-11-27] MEDS ORDERED: ROCURONIUM 50 MG/5 ML VIAL. ONE (07:12)
[2018-11-27] MEDS ORDERED: SUCCINYLCHOLINE 200 MG/10 ML VIAL. ONE (07:12)
[2018-11-27] MEDS ORDERED: METHYLENE BLUE 1% 10 ML VIAL. ONE (07:17)
[2018-11-27] MEDS ORDERED: ESTROGENS, CONJ VAGINAL CREAM 30GM TUBE. ONE (07:17)
[2018-11-27] MEDS ORDERED: BUPIVACAINE-EPI 0.25%-1:200000 MPF 30 ML VIAL. ONE (07:17)
[2018-11-27 07:18] LABS: U PREG PATIENT NEGATIVE (NEG)
[2018-11-27] MEDS ORDERED: DESFLURANE 61 TO 120 MINUTES IH ONE (07:52)
[2018-11-27] MEDS ORDERED: DEXAMETHASONE SOD PHOS 20 MG/5 ML VIAL. ONE (07:52)
[2018-11-27] MEDS ORDERED: PHENYLEPHRINE 10 MG/ML VIAL. ONE (08:10)
[2018-11-27] MEDS ORDERED: GLYCOPYRROLATE 1 MG/5 ML VIAL. ONE (08:11)
[2018-11-27] MEDS ORDERED: ONDANSETRON PF 4 MG/2 ML VIAL. ONE (08:11)
[2018-11-27] MEDS ORDERED: NEOSTIGMINE 10 MG/10 ML VIAL. ONE (08:12)
[2018-11-27] MEDS ORDERED: FAMOTIDINE 20 MG/2 ML VIAL ONE (08:56)
[2018-11-27] MEDS ORDERED: CALCIUM CARBONATE 500 MG TAB.CHEW PO PRN (09:30)
[2018-11-27] MEDS ORDERED: HYDROcodone/APAP 5/325MG 1 TAB TABLET PO PRN (09:30)
[2018-11-27] MEDS ORDERED: diphenhydrAMINE HCL 25 MG CAPSULE PO PRN (09:30)
[2018-11-27] MEDS ORDERED: KETOROLAC 30 MG/ML VIAL. IV PRN (09:30)
[2018-11-27] MEDS ORDERED: LACTULOSE 20 GM/30 ML SOLUTION. PO PRN (09:30)
[2018-11-27] MEDS ORDERED: MAG HYDROX/ALUMINUM HYD/SIMETH 30 ML ORAL.SUSP PO PRN (09:30)
[2018-11-27] MEDS ORDERED: diphenhydrAMINE 50 MG/ML VIAL IV PRN (09:30)
[2018-11-27] MEDS ORDERED: MAGNESIUM HYDROXIDE 2,400 MG/30 ML ORAL.SUSP. PO PRN (09:30)
[2018-11-27] MEDS ORDERED: 0.9 % SODIUM CHLORIDE 10 ML DISP.SYRIN. IV PRN (09:30)
[2018-11-27] MEDS ORDERED: NALOXONE 0.4 MG/ML VIAL. IV PRN (09:30)
[2018-11-27] MEDS ORDERED: ZOLPIDEM 5 MG TABLET. PO PRN (09:30)
--- NOTE | 2018-11-27 09:51 | PDOC ---
BRIEF OPERATIVE NOTE Date: Nov 27, 2018 Pre-Op Diagnosis menorrhagia, breast cancer Post-Op Diagnosis same Procedure Performed LAVH/BSO Surgeon Dr. yariel Bronson Director Product Management OR personnel Anesthesiologist Dr. Rico Anesthesia Type: General Blood Loss 100cc IV Fluid 1200cc Urine Output 200cc clear via diaz Specimens Obtained cervix, uterus, bilateral tubes and ovaries Findings enlarged uterus, cysts on right ovary, adhesive disease with omental adhesions and right sided adhesions on pelvic sidewall and appendix normal but appeared stuck Complications none Operative Note [id number] YARIEL BRONSON MD Nov 27, 2018 09:51
[2018-11-27] MEDS: fentaNYL PF VIAL 100 MCG/2 ML VIAL IV PRN ×2 (10:02→10:22)
--- NOTE | 2018-11-27 10:48 | OP ---
DATE OF SURGERY: 11/27/2018 PREOPERATIVE DIAGNOSES: Menorrhagia, dysmenorrhea and breast cancer. POSTOPERATIVE DIAGNOSES: Menorrhagia, dysmenorrhea and breast cancer. PROCEDURE: Laparoscopic-assisted vaginal hysterectomy and bilateral salpingo-oophorectomy. SURGEON: Petrona Osullivan M.D. TICKETING CLERK: OR personnel. ANESTHESIOLOGIST: Nilson Rico M.D. ANESTHESIA: General. ESTIMATED BLOOD LOSS: 100 mL. URINE OUTPUT: 200 mL clear via Smith catheter. INTRAVENOUS FLUIDS: 1200 mL of crystalloid. SPECIMENS: Cervix, uterus, bilateral tubes and ovaries. FINDINGS: There was an enlarged retroverted uterus, a cystic right ovary and some adhesive disease with omental adhesions to the anterior abdominal wall midline and right-sided pelvic adhesions as well. I could see the normal appendix, but it appeared to be stuck and the adhesions went up the whole right side to just in front of the liver edge. COMPLICATIONS: None. DESCRIPTION OF PROCEDURE: This patient was taken to the operating room, where general anesthesia was placed. The patient was placed in a dorsal lithotomy position in [facility]. The patient's abdomen and vagina were prepped and draped in the normal sterile fashion and a Smith catheter had been inserted prior to my arrival. Upon my arrival, a timeout was performed. Once everyone agreed and she had received her preoperative antibiotics, a bivalve speculum was placed in the patient's vagina. A single-tooth tenaculum was used to grasp the anterior lip of the cervix. A 10 mL of 0.5% Marcaine with epinephrine was used to circumferentially inject around the cervix for both hemodissection and hemostatic purposes later. The Valtchev uterine manipulator was placed through the endocervical os, locked on the single tooth tenaculum and the bivalve speculum was then removed. Top gloves were discarded and changed. Attention was then turned to the abdomen, where a small infraumbilical skin incision was made over the existing tubal scar. A curved Sofia was used to dissect through the subcuticular layer to the fascia. The 5-mm Visiport was used to directly enter the abdominal cavity. Opening patient pressure was 3-4 mmHg. Carbon dioxide gas was used to then appropriately insufflate the abdominal cavity to maintain a pressure of 15 mmHg. Upon initial entry, I was not 100% positive I was in because I could see omentum. So, I kind of moved it back and around and I could get around it and it was clear that there was an omental adhesion. So, I put the left lower quadrant port in. Once it was insufflated, placed her in Trendelenburg, transilluminating the abdominal wall, found an area of clear vasculature and it was clear over there. So, the small incision was made and the 5-mm trocar was placed in under direct visualization without difficulty. Two mL of air was placed in the cuff. I then moved the camera to look at it. My actual port was completely free of the adhesion. It was just behind it, so that is what we were looking at when we went in, but I was able to get around it and put the right lower quadrant port in as well, finding an area clear, transilluminating the abdominal wall and placing under direct visualization and I put 2 mL of air in the midline too when we were watching it. Camera was moved back to the midline and I did take down some of the omental adhesions that were right in front of it just so I could get to the pelvis easier and not having the camera run into it, but I did not take them all down nor did I touch the right-sided ones with the appendix going up towards the liver, but I did take down a few of the omental adhesions with the LigaSure right in front of the camera so I could get down into the pelvis easier. Once this was done, the left tube and ovary were elevated, finding the ureter coursing low in the pelvis, staying high on the infundibulopelvic ligament, cauterizing and cutting with the LigaSure, going over towards the uterus, taking the tube and ovary, crossing the left round ligament and then starting the bladder flap from this side as well and then staying once the bladder was down, getting the uterine vessels on this side. This was done exactly the same on the right side, elevating the right tube and ovary. The right ovary was cystic in nature, but appeared benign, but it was cystic, elevating it, finding the ureter coursing low, again staying high on the IP ligament, cauterizing and cutting with the LigaSure, going over to the uterus, crossing the right round ligament, going down and further meeting that bladder flap anteriorly, pushing cephalad on the uterus, making sure the bladder was down, getting the uterine vessels on this side as well and then going down, hugging the cervix and uterus through the cardinal and broad ligaments to the level of the uterosacral, cauterizing and cutting with the LigaSure on the right side. Then, I went back to the left side, hugged the uterus and went down to the uterosacrals, hugging the cervix on that side as well. Cervix, uterus, tubes and ovaries were free of anything. They were completely blanched and mobile. So, everything was removed from the abdomen and attention was turned vaginally. The single tooth and Valtchev were removed. A weighted speculum was placed in the patient's vagina. Thyroid Leigh Ann clamps were placed on the anterior and posterior lips of the cervix respectively. A scalpel was used to make a circumferential incision in the cervix. The cervix was elevated. The posterior cul-de-sac was sharply entered with the curved Martinez scissors. A #0 Vicryl stitch was used to secure the posterior peritoneum here to the vaginal cuff. It was tagged with a curved Sofia clamp and the needle was cut and passed off. The short weighted speculum was removed and replaced with the long weighted vaginal Shaheen speculum in the posterior cul-de-sac. At this point, sharply and bluntly, the bladder was taken off the anterior cervix and then an open Ray-Ganesh 4 x 4 was used to gently push up the anterior bladder peritoneum and the anterior cul-de-sac was digitally and bluntly entered. The 4 x 4 was taken out of the anterior cul-de-sac and just a curved Earp was placed here. Curved Sae clamps x 2 were placed on the patient's left uterosacral ligament, where they were doubly clamped with curved Heaneys, cut with curved Martinez scissors and suture ligated x 2 with 0 Vicryl. Second one was taken through the vaginal cuff, securing uterosacral ligament to the vaginal cuff and tagged with a straight Sofia clamp and the needle was cut and passed off. This was done exactly the same on the right side, double clamping the uterosacrals with curved Sae's, cutting with Martinez scissors and suture ligating x 2 with #0 Vicryl, again taking the second one through the vaginal cuff and tagging it with a straight Sofia clamp and cutting and passing the needle off. The remaining pedicles on both sides were delineated with the curved mixture and then the vaginal LigaSure was used to cauterize and cut the remaining connections. Cervix, uterus, bilateral tubes and ovaries were delivered in total and passed off for permanent pathology. A sponge stick was used to examine the pedicles, which appeared to be hemostatic. A long Allis was used to grasp the anterior bladder peritoneum. The long weighted Shaheen speculum was removed and replaced with a short weighted vaginal speculum. A 2-0 Vicryl was taken through the anterior bladder peritoneum, left uterosacral ligament, posterior peritoneum and right uterosacral ligament, thus closing the peritoneum in a pursestring like fashion. The right and left uterosacral tags were clipped as well. At this point, a full-length 2-0 Vicryl was used to close the cuff in an [id number] running locked fashion and it was tied to that posterior cuff tag. Sponge stick was used to examine the cuff and it was completely hemostatic. At this point, all instruments were removed from the vaginal area. All sponge, lap and needle counts were correct x 2 by OR personnel. All gloves were discarded and changed and attention was turned back above for a second look. The patient was placed back in Trendelenburg. Gas was reinsufflated and copious irrigation revealed hemostasis. Tisseel was placed over the pedicles. The right and left lower quadrant balloons were deflated and they were removed under direct visualization. These too were hemostatic. Gas was released from the umbilical port. The 2 mL of air was taken out of this as well and it was removed. All three port sites were closed with 4-0 nylon at the skin and injected with 10 mL of 0.5% Marcaine with epinephrine. The patient was awakened from anesthesia, extubated and brought to recovery room in stable condition. PETRONA OSULLIVAN MD DR: APOLINAR/michelle JOB#: [id number] / [id number]
[2018-11-27] MEDS: oxyCODONE/APAP 5/325 1 TAB TABLET PO PRN ×2 (14:01→23:31)
[2018-11-27] MEDS ORDERED: BENZOCAINE/MENTHOL LOZENGE. PO PRN (14:15)
[2018-11-27] MEDS: IBUPROFEN 400 MG TABLET. PO PRN (17:32)
[2018-11-27] MEDS: SIMETHICONE 80 MG TAB.CHEW PO PRN (17:32)
--- NOTE | 2018-11-27 18:15 | NUR ---
INTERPRTER PHONE USED TO INFORM PT WILL HAVE TO STAY TO PUT UNDER BILI LIGHTS. STATES UNDERSTANDS.
[2018-11-28 04:39] LABS: CREATININE 0.7 mg/dL (0.6-1.0); GFR 91.3; POTASSIUM 3.7 mmol/L (3.5-5.1)
[2018-11-28 06:31] VITALS: BP 99/63
--- NOTE | 2018-11-28 08:46 | PDOC ---
SURGICAL PROGRESS NOTE Subjective Doing well without complaints. Chris reg diet, ambulating well, voiding without catheter and no vaginal bleeding Vital Signs Vital Signs Date Time Temp Pulse Resp B/P (MAP) Pulse Ox O2 Delivery O2 Flow Rate FiO2 11/28/18 06:31 97.9 69 99/63 (75) 98 Room Air 97.9 11/27/18 23:40 18 11/27/18 23:38 10.0 I&O Intake and Output 11/28/18 07:01 Intake Total 380 ml Output Total 750 ml Balance -370 ml Intake Oral 380 ml Output Urine Total 750 ml # Voids 4 PATIENT HAS A PURVIS: No General: Alert, Oriented X3, Cooperative, No acute distress HEENT: Atraumatic Heart: Regular rate Abdomen: Soft, No tenderness, No masses Extremities: No clubbing, No cyanosis, No edema, No tenderness/swelling Skin: No rashes, No breakdown Neuro: Normal speech Psych/Mental Status: Mental status NL, Mood NL Labs Laboratory Tests Test 11/27/18 06:28 11/28/18 03:10 Urine Test Negative (NEG) Hematocrit 33.4 % (36.0-47.0) Sodium Level 140 mmol/L (136-145) Potassium Level 3.7 mmol/L (3.5-5.1) Chloride Level 105 mmol/L (98-107) Carbon Dioxide Level 25 mmol/L (21-32) Anion Gap 10 (6-14) Blood Urea Nitrogen 7 mg/dL (7-20) Creatinine 0.7 mg/dL (0.6-1.0) Estimated GFR (Cockcroft-Gault) 91.3 Glucose Level 96 mg/dL (70-99) Calcium Level 9.0 mg/dL (8.5-10.1) Laboratory Tests Test 11/28/18 03:10 Hematocrit 33.4 % (36.0-47.0) Sodium Level 140 mmol/L (136-145) Potassium Level 3.7 mmol/L (3.5-5.1) Chloride Level 105 mmol/L (98-107) Carbon Dioxide Level 25 mmol/L (21-32) Anion Gap 10 (6-14) Blood Urea Nitrogen 7 mg/dL (7-20) Creatinine 0.7 mg/dL (0.6-1.0) Estimated GFR (Cockcroft-Gault) 91.3 Glucose Level 96 mg/dL (70-99) Calcium Level 9.0 mg/dL (8.5-10.1) I have reviewed the following labs, vitals, nursing Cardiovascular: No pertinent hx Pulmonary: No pertinent hx GI: No pertinent hx Heme/Onc: No pertinent hx Psych: No pertinent hx Rheumatologic: No pertinent hx Infectious disease: No pertinent hx Assessment/Plan POD#1 s/p LAVH/BSO d/c to home later today NPV x 6 weeks Light/limited activity x [address] while on narcotic pain meds already has narcotic pain pills filled at home OK for otc ibuprofen keep scheduled follow up in one week with me call or return sooner for any other questions or concerns not limited to but including pain unrelieved with pain meds, increased or unexplained vaginal bleeding or T>100.4 PETRONA BRONSON MD Nov 28, 2018 08:46
--- NOTE | 2018-11-28 08:49 | PDOC3 ---
Discharge Summary Visit Information Date of Admission: Nov 27, 2018 Date of Discharge: Nov 28, 2018 Final Diagnosis menorrhagia and breast cancer Brief Hospital Course Allergies Allergies Coded Allergies Type Severity Reaction Last Updated Verified No Known Drug Allergies 11/27/18 No Vital Signs Vital Signs Date Time Temp Pulse Resp B/P (MAP) Pulse Ox O2 Delivery O2 Flow Rate FiO2 11/28/18 06:31 97.9 69 99/63 (75) 98 Room Air 97.9 11/27/18 23:40 18 11/27/18 23:38 10.0 Lab Results Laboratory Tests Test 11/27/18 06:28 11/28/18 03:10 Urine Test Negative (NEG) Hematocrit 33.4 % (36.0-47.0) Sodium Level 140 mmol/L (136-145) Potassium Level 3.7 mmol/L (3.5-5.1) Chloride Level 105 mmol/L (98-107) Carbon Dioxide Level 25 mmol/L (21-32) Anion Gap 10 (6-14) Blood Urea Nitrogen 7 mg/dL (7-20) Creatinine 0.7 mg/dL (0.6-1.0) Estimated GFR (Cockcroft-Gault) 91.3 Glucose Level 96 mg/dL (70-99) Calcium Level 9.0 mg/dL (8.5-10.1) Laboratory Tests Test 11/28/18 03:10 Hematocrit 33.4 % (36.0-47.0) Sodium Level 140 mmol/L (136-145) Potassium Level 3.7 mmol/L (3.5-5.1) Chloride Level 105 mmol/L (98-107) Carbon Dioxide Level 25 mmol/L (21-32) Anion Gap 10 (6-14) Blood Urea Nitrogen 7 mg/dL (7-20) Creatinine 0.7 mg/dL (0.6-1.0) Estimated GFR (Cockcroft-Gault) 91.3 Glucose Level 96 mg/dL (70-99) Calcium Level 9.0 mg/dL (8.5-10.1) Brief Hospital Course Ms. Espinoza is a 42 old female who presented with menorrhagia and ER + breast cancer desiring LAVH/BSO. She underwent the aforementioned procedure without complications. She is voiding without catheter, ambulating well, no vaginal bleeding. Will be d/c to home later today Discharge Information Condition at Discharge: Improved Follow Up: Weeks Disposition/Orders: D/C to Home Miscellaneous Medications Info (No Known Medications Prior To Admisstion) Each, 1 EACH , (Reported) Entered as Reported by: LOPEZ JEWELL on 05/08/178 Last Action: Reviewed on 11/27/18657 by ERYN SAN Patient Instructions Patient Instructions POD#1 s/p LAVH/BSO d/c to home later today NPV x 6 weeks Light/limited activity x [address] while on narcotic pain meds already has narcotic pain pills filled at home OK for otc ibuprofen keep scheduled follow up in one week with me call or return sooner for any other questions or concerns not limited to but including pain unrelieved with pain meds, increased or unexplained vaginal bleeding or T>100.4 PETRONA BRONSON MD Nov 28, 2018 08:49
[2018-11-28] MEDS: IBUPROFEN 400 MG TABLET. PO PRN (09:25)
[2018-11-28] MEDS: SIMETHICONE 80 MG TAB.CHEW PO PRN (09:25)
--- NOTE | 2018-12-01 14:19 | PATHOLOGY ---
[facility] Accession Number: [id number] . 01 Material submitted: . UTERUS, CERVIX, BILATERAL TUBES AND OVARIES . 01 Clinical history: . Menorrhagia . 02 Diagnosis: Uterus and attached bilateral fallopian tubes and ovaries, laparoscopic assisted vaginal hysterectomy with bilateral salpingo-oophorectomy: - Chronic cervicitis with focal squamous metaplasia. - Nabothian cysts, cervix, few. - Early secretory endometrium. - Adenomyosis, uterine corpus, sub-basal, focal. - Leiomyomas (2), uterine corpus, subserosal, the largest measuring 2.1 cm in greatest dimension. - Mild hydrosalpinx of right fallopian tube. - Cystic follicle of left ovary. - Hemorrhagic corpus luteum cyst and cystic follicles of right ovary. LBQ/12/01/2018 . 02 Comment: There is no atypia or evidence of malignancy. (JPM/db; 12/01/2018) . 02 Electronically signed: . Robert Cheng MD, Pathologist NPI- [id number] . 01 Gross description: . The specimen is received in formalin, labeled "Marcella Espinoza, uterus, cervix, bilateral tubes and ovaries". Received is a 157 g, 9.3 x 6.5 x 6.0 cm uterus with attached cervix and attached adnexa, weighing 11 and 25 g, left and right, respectively. The uterine serosa is light charles and smooth in appearance. The 1.0 cm cervical os is surrounded by pale charles, smooth to shaggy ectocervical mucosa. The uterus is oriented using the peritoneal reflection and the anterior paracervical margin is inked black. The uterus is opened laterally to reveal a light charles, partially corrugated endocervical canal measuring 2.5 cm in length. The endometrial cavity is triangular measuring 5.1 cm in length by 2.9 cm in width. The endometrium is pale charles to pink-charles, glistening in appearance and measures up to 0.3 cm in thickness. Sectioning reveals a charles-pink, trabeculated myometrium measuring up to 2.9 cm in thickness. There are two subserosal fibroids measuring 0.6 and 2.1 cm. . The left adnexa consists of a non-fimbriated fallopian tube measuring 3.7 cm in length by 0.6 cm in diameter attached to a 4.3 x 2.3 x 1.6 cm ovary. Sectioning through the fallopian tube reveals a patent lumen. Sectioning through the ovary reveals a single unilocular cystic structure measuring 1.0 cm with yellow fluid. Remaining cut surfaces display pale charles ovarian stroma. . The right adnexa consists of a non-fimbriated fallopian tube measuring 5.3 cm in length by 0.7 cm in diameter attached to an ovary measuring 3.4 x 2.8 x 2.7 cm in greatest dimensions. Sectioning through the fallopian tube reveals a dilated lumen filled with blood-tinged fluid. Sectioning through the ovary reveals multiple cystic structures ranging in size from 0.3 to 1.1 cm filled with yellow serous fluid. There are multiple corpora lutea present ranging in size from 0.3 to 2.1 cm, the largest of which is hemorrhagic in appearance. The specimen is submitted representatively as follows: . A1 12:00 cervix A2 6:00 cervix A3 anterior endomyometrium A4 posterior endomyometrium A5 manufacturers representative sections of fibroids A6 left adnexa A7-A8 right adnexa. (CAA; 11/28/2018) QAC/QAC . 02 Pathologist provided ICD-10: N72, N88.8, N80.0, D25.2, N83.11, N92.0 . 02 CPT . 997962 Specimen Comment: A courtesy copy of this report has been sent to Specimen Comment: [phone], . Specimen Comment: Report sent to / DR SU Specimen Comment: A duplicate report has been generated due to demographic updates. Performed at: [address] [place] [id number] MD Kb Ag MD Phone: [phone] Performed at: [address] [id number] MD Robert Cheng MD Phone: [phone]
== END 2018-11-28 10:25 | disposition home or self-care (01) ==
LOC: SURG 06:03 → 3 NORTH 09:30
PROVIDERS: ADMIT Obstetrics & Gynecology; ATTEND Obstetrics & Gynecology
DX: N92.0 Excessive and frequent menstruation with regular cycle (principal); N94.6 Dysmenorrhea, unspecified; N85.4 Malposition of uterus; N83.201 Unspecified ovarian cyst, right side; N73.6 Female pelvic peritoneal adhesions (postinfective); C50.919 Malignant neoplasm of unspecified site of unspecified female breast
CPT/HCPCS: 36415; 58552; 80048; 81025; 85014; 86850; 86900; 86901; 96374; A7015; G0378; G0379; J0330; J0696; J1100; J1885; J2001; J2405; J2704; J2710; J3010; J3490; J7030; J7120; 88307; Q9968

== ENCOUNTER → 2019-04-07 | Outpatient (CLI) | payer BC ==
--- NOTE | 2019-04-09 09:07 | PATHOLOGY ---
[facility] Accession Number: [id number] . 01 Material submitted: . breast - LEFT BREAST TISSUE, 11:00, 7CMFN. Modifiers: left, 11:00 . 01 Clinical history: . Lt breast mass 1100 . 02 Diagnosis: Breast tissue, left breast mass 11:00 needle biopsies: - Fibroadenoma. - Several microcalcifications identified. LBQ/04/08/2019 . 02 Comment: There is no evidence of malignancy. (JPM/db; 04/08/2019) . 02 Electronically signed: . Robert Cheng MD, Pathologist NPI- [id number] . 01 Gross description: . The specimen is received in formalin, labeled "Marcella Espinoza, Lt breast 11:00 7 cmFN" and consists of 3 needle cores of yellow-charles tissue measuring between 0.4 cm and 0.7 cm in length and 0.1-0.2 cm each in diameter. Specimen was collected at 9:13 AM on 04/07/2019 and placed in formalin at 9:21 AM. The cold ischemic time is 8 minutes and the total formalin fixation time is greater than 6 hours but less than 72 hours. (SDY; 04/07/2019) SYU/SYU . 02 Pathologist provided ICD-10: D24.2 . 02 CPT . 305903 Specimen Comment: A courtesy copy of this report has been sent to Specimen Comment: [phone], , . Specimen Comment: Report sent to ,DR REED / DR SU Performed at: [address], [place], [place] [id number] MD Kb Ag MD Phone: [phone] Performed at: [address] [id number] MD Robert Cheng MD Phone: [phone]
--- NOTE | 2019-04-15 10:11 | RAD ---
Ultrasound-guided left breast biopsy, 04/07/2019: HISTORY: Suspicious nodule Previous imaging demonstrated a suspicious nodule at the 11:00 location left breast approximate 7 cm from the nipple. Informed consent was obtained prior to the procedure. The patient understands the risk of implant deflation associated with breast biopsy in the presence of a breast implant. Under local anesthesia, aseptic conditions and sonographic guidance four 14-gauge core samples were obtained from this nodule via an inferomedial approach. Care was taken to avoid the patient's breast implant. Samples were sent to pathology for evaluation. A biopsy marker was deposited within the nodule. Hemostasis was then obtained. Two-view postprocedural digital mammograms were then obtained to document position of the biopsy marker. The patient tolerated the procedure well and left the department in good condition. The subsequent pathology report indicated the presence of a fibroadenoma. This is considered to be a concordant finding.
== END ==
LOC: US 07:59
PROVIDERS: ATTEND Surgery
DX: D24.2 Benign neoplasm of left breast (principal)
CPT/HCPCS: 19083; 77065; 88305; C1713; 19081; 76942

== ENCOUNTER → 2021-02-21 | Outpatient (CLI) | payer OTHER ==
--- NOTE | 2021-02-22 12:13 | RAD ---
CLINICAL INDICATION: CHEYENNE VELASCO, who is 45 years of age, presents for routine diagnostic evaluatio n. COMPARISON: Prior mammographic imaging dating back to TECHNIQUE: Diagnostic views of the right breast were obtained, utilizing digital technique. BREAST COMPOSITION: There are scattered fibroglandular densities. MAMMOGRAM FINDINGS: There are no suspicious masses, microcalcifications, or architectural distortion to suggest malignanc y in the right breast. Bilateral breast implants are again seen. The visualized axilla appears unremarkable. IMPRESSION: 1. No mammographic evidence of malignancy in either breast. RECOMMENDATION: In the absence of new clinical symptoms or change in physical exam, annual diagnostic mammography is recommended. BIRADS 2: BENIGN Electronically signed by: Justin Hyatt MD (02/22/2021 12:10 PM) [place] [id number]
== END ==
LOC: MAMMO 09:02
PROVIDERS: ATTEND Internal Medicine Medical Oncology
DX: R92.8 Other abnormal and inconclusive findings on diagnostic imaging of breast (principal); Z85.3 Personal history of malignant neoplasm of breast
CPT/HCPCS: 77066

== ENCOUNTER → 2021-03-01 | Outpatient (CLI) | payer OTHER ==
[2021-03-01 15:17] LABS: BASO # 0.1 x10^3/uL (0.0-0.2); BASO % 1 % (0-3); EOS # 0.1 x10^3/uL (0.0-0.7); EOS % 3 % (0-3); HEMATOCRIT 37.2 % (36.0-47.0); HEMOGLOBIN 12.5 g/dL (12.0-15.5); LYMPH # 1.5 x10^3/uL (1.0-4.8); LYMPH % 30 % (24-48); MEAN CORPUSCULAR HEMOGLOBIN 30 pg (25-35); MEAN CORPUSCULAR HGB CONC 34 g/dL (31-37); MEAN CORPUSCULAR VOLUME 89 fL (79-100); MONO # 0.4 x10^3/uL (0.0-1.1); MONO % 8 % (0-9); NEUT # 2.9 x10^3/uL (1.8-7.7); NEUT % 58 % (31-73); PLATELET COUNT 190 x10^3/uL (140-400); RED BLOOD COUNT 4.18 x10^6/uL (3.50-5.40); RED CELL DISTRIBUTION WIDTH 12.9 % (11.5-14.5)
[2021-03-01 15:32] LABS: CALCIUM 8.4 mg/dL (8.5-10.1); CREATININE 0.6 mg/dL (0.6-1.0); GFR 107.6; POTASSIUM 3.8 mmol/L (3.5-5.1)
[2021-03-01 15:47] LABS: ALBUMIN 3.5 g/dL (3.4-5.0); ALBUMIN/GLOBULIN RATIO 1.1 (1.0-1.7); TOTAL BILIRUBIN 0.5 mg/dL (0.2-1.0); TOTAL PROTEIN 6.6 g/dL (6.4-8.2)
== END ==
LOC: ONCLAB 14:56
PROVIDERS: ATTEND Physician Assistant
DX: C50.411 Malignant neoplasm of upper-outer quadrant of right female breast (principal)
CPT/HCPCS: 36415; 80053; 85025; 86300

== ENCOUNTER → 2021-08-30 | Outpatient (CLI) | payer OTHER ==
[2021-08-30 08:36] LABS: BASO % 1 % (0-3); EOS # 0.1 x10^3/uL (0.0-0.7); EOS % 3 % (0-3); HEMATOCRIT 38.5 % (36.0-47.0); HEMOGLOBIN 12.9 g/dL (12.0-15.5); LYMPH # 1.3 x10^3/uL (1.0-4.8); LYMPH % 29 % (24-48); MEAN CORPUSCULAR HEMOGLOBIN 30 pg (25-35); MEAN CORPUSCULAR HGB CONC 33 g/dL (31-37); MEAN CORPUSCULAR VOLUME 89 fL (79-100); MONO # 0.3 x10^3/uL (0.0-1.1); MONO % 6 % (0-9); NEUT # 2.9 x10^3/uL (1.8-7.7); NEUT % 61 % (31-73); PLATELET COUNT 196 x10^3/uL (140-400); RED BLOOD COUNT 4.32 x10^6/uL (3.50-5.40); RED CELL DISTRIBUTION WIDTH 12.9 % (11.5-14.5); WHITE BLOOD COUNT 4.7 x10^3/uL (4.0-11.0)
[2021-08-30 08:45] LABS: CALCIUM 8.5 mg/dL (8.5-10.1); CREATININE 0.6 mg/dL (0.6-1.0)
[2021-08-30 08:46] LABS: GFR 107.6; POTASSIUM 4.1 mmol/L (3.5-5.1)
[2021-08-30 08:52] LABS: ALBUMIN 3.5 g/dL (3.4-5.0); TOTAL BILIRUBIN 0.5 mg/dL (0.2-1.0); TOTAL PROTEIN 6.9 g/dL (6.4-8.2)
== END ==
LOC: ONCLAB 08:04
PROVIDERS: ATTEND Physician Assistant
DX: C50.411 Malignant neoplasm of upper-outer quadrant of right female breast (principal)
CPT/HCPCS: 36415; 80053; 85025; 86300

== ENCOUNTER → 2022-02-27 | Outpatient (CLI) | payer OTHER ==
--- NOTE | 2022-02-27 12:23 | RAD ---
EXAM: Bilateral diagnostic mammogram. HISTORY: 46-year-old female with a history of right breast cancer, status post right breast conservat ion therapy, presents for bilateral mammography. TECHNIQUE: Full-field digital craniocaudal and mediolateral oblique views of both breasts are obtaine d for evaluation. Computer aided detection was applied. COMPARISON: 02/21/2021, 04/07/2019, 05/06/2018 BREAST PARENCHYMAL DENSITY: Level C - Heterogeneously dense. FINDINGS: There is stable architectural distortion within the upper outer quadrant of the right breas t consistent with a lumpectomy bed. There is a stable biopsy clip within the anterior 12:00 position of the right breast. There is a stable nodule containing a biopsy clip within the posterior 11:00 pos ition of the left breast. There are subpectoral breast implants with slight capsular outpouching, sta ble in appearance. There is no new suspicious mass, calcification or architectural distortion. IMPRESSION: BI-RADS Category 2: Benign finding(s). RECOMMENDATION: Annual mammography is recommended. If your mammogram demonstrates that you have dense breast tissue, which could hide abnormalities, and if you have other risk factors for breast cancer that have been identified, you might benefit from s upplemental screening tests that may be suggested by your ordering physician. Dense breast tissue, i n and of itself, is a relatively common condition. This information is not provided to cause undue c oncern, but rather to raise your awareness and to promote discussion with your physician regarding th e presence of other risk factors, in addition to dense breast tissue. A report of your mammography re sults will be sent to you and your physician. You should contact your physician if you have any ques tions or concerns regarding this report. Mammography is a sensitive method for finding small breast cancers, but it does not detect them all a nd is not a substitute for careful clinical examination. A negative mammogram does not negate a clin ically suspicious finding and should not result in delay in biopsying a clinically suspicious abnorma lity. PQRS compliance statement - Patient information was entered into a reminder system with a target due date for the next mammogram. "Our facility is accredited by the [employer] Mammography [employer]." Electronically signed by: rAely Murphy MD (02/27/2022 8:25 AM) [id number]
== END ==
LOC: MAMMO 07:41
PROVIDERS: ATTEND Internal Medicine Hematology & Oncology
DX: C50.911 Malignant neoplasm of unspecified site of right female breast (principal); N63.22 Unspecified lump in the left breast, upper inner quadrant
CPT/HCPCS: 77066

== ENCOUNTER → 2022-02-28 | Outpatient (CLI) | payer OTHER ==
[2022-02-28 09:01] LABS: BASO % 1 % (0-3); EOS # 0.1 x10^3/uL (0.0-0.7); EOS % 3 % (0-3); HEMATOCRIT 39.8 % (36.0-47.0); HEMOGLOBIN 13.1 g/dL (12.0-15.5); LYMPH # 1.2 x10^3/uL (1.0-4.8); LYMPH % 29 % (24-48); MEAN CORPUSCULAR HEMOGLOBIN 29 pg (25-35); MEAN CORPUSCULAR HGB CONC 33 g/dL (31-37); MEAN CORPUSCULAR VOLUME 89 fL (79-100); MONO # 0.3 x10^3/uL (0.0-1.1); MONO % 7 % (0-9); NEUT # 2.5 x10^3/uL (1.8-7.7); NEUT % 60 % (31-73); PLATELET COUNT 174 x10^3/uL (140-400); WHITE BLOOD COUNT 4.1 x10^3/uL (4.0-11.0)
[2022-02-28 09:19] LABS: ALBUMIN 3.6 g/dL (3.4-5.0); ALBUMIN/GLOBULIN RATIO 0.9 (1.0-1.7); CREATININE 0.7 mg/dL (0.6-1.0); GFR 89.7; POTASSIUM 4.3 mmol/L (3.5-5.1); TOTAL BILIRUBIN 0.8 mg/dL (0.2-1.0); TOTAL PROTEIN 7.5 g/dL (6.4-8.2)
== END ==
LOC: ONCLAB 08:36
PROVIDERS: ATTEND Physician Assistant
DX: C50.411 Malignant neoplasm of upper-outer quadrant of right female breast (principal)
CPT/HCPCS: 36415; 80053; 82306; 85025; 86300